=== PATIENT | female | born 1955 | race Caucasian/White ===

== ENCOUNTER → 2019-04-09 | Outpatient (REF) | payer OTHER ==
[~2019-04-09] MED LIST: ASPI325T OR; CELE20TA OR; HYDR25TA6 OR; IBUP600T OR; LISI10TA4 OR; PROT1TAB2 OR
[2019-04-09 13:02] LABS: BASO % 0.4 % (0.0-1.0); EOS # 0.1 10^3/uL (0.0-0.5); HEMATOCRIT 33.9 % (36.0-47.0); HEMOGLOBIN 11.5 g/dl (12.0-15.5); LYMPH # 1.7 10^3/uL (1.5-5.0); LYMPH % 37.1 % (24.0-44.0); MEAN CORPUSCULAR HEMOGLOBIN 32.4 pg (27.0-33.0); MEAN CORPUSCULAR HGB CONC 33.9 g/dl (32.0-36.5); MEAN CORPUSCULAR VOLUME 95.5 fl (80.0-96.0); MONO # 0.4 10^3/uL (0.0-0.8); MONO % 7.7 % (0.0-5.0); NEUTROPHILS # 2.4 10^3/uL (1.5-8.5); NEUTROPHILS % 52.1 % (36.0-66.0); PLATELET COUNT, AUTOMATED 136 10^3/uL (150-450); RED BLOOD COUNT 3.55 10^6/uL (4.00-5.40); WHITE BLOOD COUNT 4.5 10^3/uL (4.0-10.0)
[2019-04-09 13:20] LABS: ALBUMIN 3.8 GM/DL (3.2-5.2); ALT/SGPT 80 U/L (12-78); BILIRUBIN,TOTAL 0.8 MG/DL (0.2-1.0); BLOOD UREA NITROGEN 12 MG/DL (7-18); CALCIUM LEVEL 8.6 MG/DL (8.8-10.2); CARBON DIOXIDE LEVEL 31 MEQ/L (21-32); CHLORIDE LEVEL 106 MEQ/L (98-107); CHOLESTEROL LEVEL 146 MG/DL (<200); CHOLESTEROL RISK RATIO 3.743 (<5); CREATININE FOR GFR 0.94 MG/DL (0.55-1.30); FREE T4 0.99 NG/DL (0.76-1.46); GLOMERULAR FILTRATION RATE > 60.0 (>45); GLUCOSE, FASTING 101 MG/DL (70-100); HDL CHOLESTEROL 39 MG/DL (>40); LDL CHOLESTEROL 92 MG/DL (<100); NON-HDL-C 107 MG/DL; SODIUM LEVEL 143 MEQ/L (136-145); TOTAL 25(OH) VITAMIN D 16.8 NG/ML (30.0-100.0); TOTAL PROTEIN 6.5 GM/DL (6.4-8.2); TRIGLYCERIDES LEVEL 75 MG/DL (<150)
== END ==
LOC: M LABDRAW1 09:41
PROVIDERS: ATTEND Physician Assistant Medical
DX: M53.85 Other specified dorsopathies, thoracolumbar region (principal); I10 Essential (primary) hypertension; E78.2 Mixed hyperlipidemia; E55.9 Vitamin D deficiency, unspecified

== ENCOUNTER → 2019-04-30 | Outpatient (CLI) | payer OTHER | LOC: M PLALAB 14:25 | PROVIDERS: ATTEND Nurse Practitioner Family | DX: Z13.71 Encounter for nonprocreative screening for genetic disease carrier status (principal) ==

== ENCOUNTER → 2019-05-13 | Outpatient (CLI) | payer OTHER ==
--- NOTE | 2019-05-13 10:31 | REP ---
BILATERAL MAMMOGRAM WITH 3D TOMOSYNTHESIS, BASELINE STUDY: No family history of breast cancer. Tyrer-Cuzick lifetime risk of breast cancer 5.5%. MLO and CC views of both breasts performed with 3D tomosynthesis. There is mild to moderate scattered fibroglandular tissue, primarily located in the upper outer quadrants bilaterally. In the right retroareolar region there appears to be a smoothly marginated oval nodule approximately 1.1 cm in maximum diameter. I see no other evidence of mass or clustered microcalcifications. Normal size axillary lymph nodes are seen bilaterally. IMPRESSION: BIRADS 0: BI-RADS/ACR category 0 mammogram, Incomplete: Need additional imaging evaluation and/or prior mammograms for comparison. There appears to be an oval well circumscribed nodule in the right retroareolar region with a maximum diameter of 1.1 cm. Recommend spot compression views of the right breast retroareolar region, with the nipple in profile. Ultrasound may also be necessary. This mammogram was interpreted with the aid of an FDA-approved computer-aided detection system. The patient states he/she had a clinical breast exam in 04/2019. The patient letter being requested is M0.
== END ==
LOC: M WHC 08:45
PROVIDERS: ATTEND Nurse Practitioner Family
DX: R92.2 Inconclusive mammogram (principal)

== ENCOUNTER → 2019-05-19 | Outpatient (CLI) | payer OTHER ==
--- NOTE | 2019-05-19 12:42 | REP ---
DIAGNOSTIC MAMMOGRAM RIGHT BREAST WITH RIGHT BREAST ULTRASOUND: Spot compression views of the right breast performed in the MLO, ML and CC projections and correlated with the recent mammogram of 05/13/2019. An oval nodular opacity projects in the right retroareolar region toward the upper outer quadrant. Maximum diameter is 1 cm. Real-time sonographic evaluation of the right retroareolar region is performed. Fibroglandular tissue is seen with two mildly dilated ducts. No cystic or solid nodule is seen. IMPRESSION: BIRADS 2: BI-RADS/ACR category 2 mammogram. Benign Findings. Oval nodular opacity in the right retroareolar region appears to represent fibroglandular tissue with mildly dilated ducts. No discrete cystic or solid nodule is seen sonographically. Recommend followup mammogram in 1 year. The patient letter being requested is M1.
== END ==
LOC: M WHC 09:37
PROVIDERS: ATTEND Nurse Practitioner Family
DX: Z12.31 Encounter for screening mammogram for malignant neoplasm of breast (principal); N63.11 Unspecified lump in the right breast, upper outer quadrant

== ENCOUNTER → 2019-08-31 | Outpatient (CLI) | payer OTHER ==
[~2019-08-31] MED LIST changes: +CETI-36 PO; +LISI20TA19 PO; +PANT40TA3 PO; +SING10TA32 PO
== END ==
LOC: M LABSMTC 08:49
PROVIDERS: ATTEND Anesthesiology
DX: Z03.818 Encounter for observation for suspected exposure to other biological agents ruled out (principal); Z11.59 Encounter for screening for other viral diseases
CPT/HCPCS: C9803; U0003

== ENCOUNTER 2019-09-03 07:52 | Day surgery (SDC) | payer OTHER, MEDICARE ==
[~2019-09-03] VITALS: Ht 154.9 cm; Wt 92.5 kg
[~2019-09-03 07:52] MED LIST changes: +LIDOCAINE 2% 100MG/5ML SDV (FOR ANES.) As Ordered ONE; -LISI20TA19 PO; +LISI20TA35 PO; +NS 1,000 ML IV ONE; +PANT40TA29 PO; -PANT40TA3 PO; +propofoL 200 MG/20 ML VIAL As Ordered ONE
[2019-09-03] MEDS ORDERED: propofoL 200 MG/20 ML VIAL As Ordered ONE (09:56)
--- NOTE | 2019-09-03 10:30 | ROOR ---
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 Procedure: Pre-Anesthesia Assessment: - Prior to the procedure, a History and Physical was performed, and patient medications and allergies were reviewed. The patient is competent. The risks and benefits of the procedure and the sedation options and risks were discussed with the patient. All questions were answered and informed consent was obtained. Patient identification and proposed procedure were verified by the physician, the nurse and the anesthesiologist in the procedure room. Mental Status Examination: alert and oriented. Respiratory Examination: clear to auscultation. CV Examination: normal. Prophylactic Antibiotics: The patient does not require prophylactic antibiotics. Prior Anticoagulants: The patient has taken no previous anticoagulant or antiplatelet agents. ASA Grade Assessment: II - A patient with mild systemic disease. After reviewing the risks and benefits, the patient was deemed in satisfactory condition to undergo the procedure. The anesthesia plan was to use monitored anesthesia care (MAC). Immediately prior to administration of medications, the patient was re-assessed for adequacy to receive sedatives. The heart rate, respiratory rate, oxygen saturations, blood pressure, adequacy of pulmonary ventilation, and response to care were monitored throughout the procedure. The physical status of the patient was re-assessed after the procedure. The Colonoscope was introduced through the anus and advanced to the terminal ileum, with identification of the appendiceal orifice and IC valve. The colonoscopy was performed without difficulty. The patient tolerated the procedure well. The quality of the bowel preparation was adequate to identify polyps 6 mm and larger in size and fair. The terminal ileum, ileocecal valve, appendiceal orifice, and rectum were photographed. Scope insertion time was 3 minutes. Scope withdrawal time was 9 minutes. The total duration of the procedure was 14 minutes. Findings: The perianal and digital rectal examinations were normal. The terminal ileum appeared normal. There was a medium-sized lipoma, 25 mm in diameter, in the ascending colon. Biopsies were taken with a cold forceps for histology. Verification of patient identification for the specimen was done by the physician and nurse using the patient's name, date and medical record number. Estimated blood loss was minimal. Scattered mild inflammation characterized by altered vascularity and granularity was found from descending colon to rectum. Biopsies were taken with a cold forceps for histology. Multiple small and large-mouthed diverticula were found from sigmoid to descending colon. There was no evidence of diverticular bleeding. External and internal hemorrhoids were found during retroflexion. The hemorrhoids were medium-sized. Impression: - Preparation of the colon was fair. - The examined portion of the ileum was normal. - Medium-sized lipoma in the ascending colon. Biopsied. - Scattered mild inflammation was found from descending to rectum secondary to left-sided colitis. Biopsied. - Severe diverticulosis from sigmoid to descending colon. There was no evidence of diverticular bleeding. - External and internal hemorrhoids. Recommendation: - Patient has a contact number available for emergencies. The signs and symptoms of potential delayed complications were discussed with the patient. Return to normal activities tomorrow. Written discharge instructions were provided to the patient. - High fiber diet. - Continue present medications. - Colace capsule(s) orally 100 mg BID. - Senokot-S 2 tablets PO q HS. - Await pathology results. - Repeat colonoscopy in 3 - 5 years for screening purposes, because the bowel preparation was suboptimal and due to personal history of positive genetic test result. - Telephone GI clinic for pathology results in 2 weeks. - Return to primary care physician. Tee Mazariegos MD Tee Mazariegos MD 09/03/2019 10:29:39 AM Electronically signed by Tee Mazariegos MD Number of Addenda: 0 Note Initiated On: 09/03/2019 9:34 AM Estimated Blood Loss: Estimated blood loss: none.
[2019-09-03 10:50] VITALS: BP 114/57
== END 2019-09-03 11:02 | disposition home or self-care (01) ==
LOC: M OPP 07:52
PROVIDERS: ATTEND Internal Medicine Gastroenterology
DX: Z12.11 Encounter for screening for malignant neoplasm of colon (principal); Z15.09 Genetic susceptibility to other malignant neoplasm; Z86.010 Personal history of colon polyps; K57.30 Diverticulosis of large intestine without perforation or abscess without bleeding; K64.8 Other hemorrhoids; I10 Essential (primary) hypertension; Z79.899 Other long term (current) drug therapy

== ENCOUNTER → 2022-09-25 | Outpatient (CLI) | payer MEDICARE ==
[~2022-09-25] MED LIST changes: -LIDOCAINE 2% 100MG/5ML SDV (FOR ANES.) As Ordered ONE; +MONT-5 PO; -NS 1,000 ML IV ONE; -SING10TA32 PO; -propofoL 200 MG/20 ML VIAL As Ordered ONE
== END ==
LOC: M WHC 10:52
PROVIDERS: ATTEND Nurse Practitioner Adult Health
DX: Z12.31 Encounter for screening mammogram for malignant neoplasm of breast (principal)

== ENCOUNTER 2022-12-11 08:24 | Day surgery (SDC) | payer MEDICARE, OTHER ==
[~2022-12-11] VITALS: Ht 154.9 cm; Wt 95.4 kg
[~2022-12-11 08:24] MED LIST changes: +ATOR1TAB21 PO; +ERGO500029 PO; +NS 1,000 ML IV ONE; +ZYRTTAB8 PO
[2022-12-11 09:38] VITALS: TEMP 97.4
[2022-12-11 10:04] VITALS: BP 96/46; O2SAT 96
== END 2022-12-11 10:04 | disposition home or self-care (01) ==
LOC: M OPP 08:24
PROVIDERS: ATTEND Internal Medicine Gastroenterology
DX: Z86.010 Personal history of colon polyps (principal); Z15.09 Genetic susceptibility to other malignant neoplasm; D12.6 Benign neoplasm of colon, unspecified; D17.5 Benign lipomatous neoplasm of intra-abdominal organs; K57.30 Diverticulosis of large intestine without perforation or abscess without bleeding; K64.4 Residual hemorrhoidal skin tags; K64.8 Other hemorrhoids; K44.9 Diaphragmatic hernia without obstruction or gangrene; K29.70 Gastritis, unspecified, without bleeding; K21.00 Gastro-esophageal reflux disease with esophagitis, without bleeding; K31.7 Polyp of stomach and duodenum; Z79.02 Long term (current) use of antithrombotics/antiplatelets; Z79.1 Long term (current) use of non-steroidal anti-inflammatories (NSAID); Z79.52 Long term (current) use of systemic steroids; Z79.83 Long term (current) use of bisphosphonates; Z79.899 Other long term (current) drug therapy

== ENCOUNTER 2024-07-01 06:36 | Day surgery (SDC) | payer MEDICARE ==
[~2024-07-01] VITALS: Ht 156.2 cm; Wt 86.5 kg
[~2024-07-01 06:36] MED LIST changes: +ALBU2.5V10; +CLAR10CA3 PO; -NS 1,000 ML IV ONE
[2024-07-01] MEDS ORDERED: propofoL 200 MG/20 ML VIAL As Ordered ONE (07:24)
[2024-07-01] MEDS ORDERED: LIDOCAINE 2% INJ 100 MG/5 ML SYRINGE As Ordered ONE (07:24)
[2024-07-01] MEDS ORDERED: GLYCOPYRROLATE INJ 0.2 MG/ML 2 ML VIAL As Ordered ONE (07:29)
[2024-07-01 07:54] VITALS: TEMP 96.8
[2024-07-01 08:16] VITALS: BP 105/64; O2SAT 98
== END 2024-07-01 08:21 | disposition home or self-care (01) ==
LOC: M OPP 06:36
PROVIDERS: ATTEND Internal Medicine Gastroenterology
DX: D17.5 Benign lipomatous neoplasm of intra-abdominal organs (principal); Z86.0100 Personal history of colon polyps, unspecified; K57.30 Diverticulosis of large intestine without perforation or abscess without bleeding; Z15.09 Genetic susceptibility to other malignant neoplasm; Z79.899 Other long term (current) drug therapy; I10 Essential (primary) hypertension; R12 Heartburn; Z90.710 Acquired absence of both cervix and uterus
CPT/HCPCS: G0105; J1596